=== PATIENT | female | born 1970 | race Caucasian/White ===

== ENCOUNTER 2016-10-29 09:41 | Inpatient (IN) | payer OTHER ==
[2016-10-29 12:46] VITALS: BMI 31.7
--- NOTE | 2016-10-29 15:04 | HP ---
Admission [facility] Chief Complaint: I am here to go to rehab. Allergies/Adverse Reactions: Allergies Allergy/AdvReac Type Severity Reaction Status Date / Time No Known Allergies Allergy Verified 10/29/16 14:47 History of Present Illness: pt is a 46yr old female with a history cocaine dependence seeking rehab for tx. pt is also on a mmtp program last dose today with 140mg pending verification. Exam Limitations: No Limitations - Ebola screening Have you traveled outside of the country in the last 21 days: No Have you had contact with anyone from an Ebola affected area: No Have you been sick,other than usual withdrawal symptoms: No Do you have a fever: No - Review of Systems Constitutional: Changes in sleep EENT: reports: Blurred Vision (wears eye glasses) Respiratory: reports: No Symptoms reported Cardiac: reports: No Symptoms Reported GI: reports: Constipated, Poor Fluid Intake : reports: No Symptoms Reported, Other (fishy odor vaginal discharge.) Musculoskeletal: reports: Back Pain Integumentary: reports: No Symptoms Reported, Rash (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) Neuro: reports: Headache (migraines) Endocrine: reports: No Symptoms Reported Hematology: reports: No Symptoms Reported Psychiatric: reports: Judgement Intact, Orientated x3, Agitated, Anxious Other Systems: Reviewed and Negative Patient History - Patient Medical History Hx Anemia: No Hx Asthma: No Hx Chronic Obstructive Pulmonary Disease (COPD): No Hx Cancer: No Hx Cardiac Disorders: No Hx Congestive Heart Failure: No Hx Hypertension: Yes (ON MEDS) Hx Hypercholesterolemia: No Hx Pacemaker: No HX Cerebrovascular Accident: No Hx Seizures: Yes (2002- DRUG RELATED) Hx Dementia: No Hx Diabetes: No Hx Gastrointestinal Disorders: No Hx Liver Disease: No Hx Genitourinary Disorders: No Hx Sexually Transmitted Disorders: No Hx Renal Disease (ESRD): No Hx Thyroid Disease: No Hx Human Immunodeficiency Virus (HIV): No (negative) Hx Hepatitis C: Yes (interferon done 5yrs ago) Hx Depression: Yes Hx Suicide Attempt: No (denies) Hx Bipolar Disorder: No Hx Schizophrenia: No Other Medical History: anxiety/ptsd - Patient Surgical History Past Surgical History: No Hx Neurologic Surgery: No Hx Cataract Extraction: No Hx Cardiac Surgery: No Hx Lung Surgery: No Hx Breast Surgery: No Hx Breast Biopsy: No Hx Abdominal Surgery: No Hx Appendectomy: No Hx Cholecystectomy: No Hx Genitourinary Surgery: No Hx Section: No Hx Orthopedic Surgery: No Anesthesia Reaction: No - PPD History Previous Implant?: Yes Documented Results: Negative w/o proof PPD to be Administered?: Yes - Reproductive History Patient is a Female of Child Bearing Age (11 -55 yrs old): Yes Last Menstrual Period: 09/23/16 Patient : No - Smoking Cessation Smoking history: Current every day smoker Have you smoked in the past 12 months: Yes Aproximately how many cigarettes per day: 5 Cigars Per Day: 0 Hx Chewing Tobacco Use: No Initiated information on smoking cessation: Yes 'Breaking Loose' booklet given: 10/29/16 - Substance & Tx. History Hx Alcohol Use: No Hx Substance Use: Yes Substance Use Type: Cocaine Hx Substance Use Treatment: Yes - Substances Abused Cocaine Route: Injection Frequency: 3-6 times per week Amount used: $60 Age of first use: 29 Date of Last Use: 10/27/16 Family Disease History - Family Disease History Family Disease History: [place]: Grandparent Admission Physical Exam S - Vital Signs Vital Signs: Vital Signs - 24 hr 10/29/16 12:30 Temperature 96.6 F L Pulse Rate 63 Respiratory 20 Rate Blood Pressure 144/95 - Physical General Appearance: Yes: Appropriately Dressed, Moderate Distress, Tremorous, Irritable, Sweating, Anxious HEENTM: Yes: Within Normal Limits Respiratory: Yes: Lungs Clear, Normal Breath Sounds, No Respiratory Distress Neck: Yes: Within Normal Limits Breast: Yes: Within Normal Limits Cardiology: Yes: Regular Rhythm, Regular Rate, S1, S2 Abdominal: Yes: Normal Bowel Sounds, Non Tender, Soft Genitourinary: Yes: Within Normal Limits Back: Yes: Normal Inspection Musculoskeletal: Yes: Back pain Extremities: Yes: Normal Capillary Refill Neurological: Yes: Fully Oriented, Alert, Normal Response Integumentary: Yes: Normal Color, Track Lopez Lymphatic: Yes: Within Normal Limits - Diagnostic (1) Back pain Current Visit: Yes Status: Chronic Qualifiers: Back pain location: back pain in unspecified location Chronicity: chronic Back pain laterality: unspecified Qualified Code(s): M54.9 - Dorsalgia, unspecified; G89.29 - Other chronic pain (2) Cocaine dependence Current Visit: Yes Status: Chronic Qualifiers: Substance use status: uncomplicated Qualified Code(s): F14.20 - Cocaine dependence, uncomplicated (3) Methadone maintenance therapy patient Current Visit: Yes Status: Chronic Comment: last dose of 140mg given today; pending verification (4) Nicotine dependence Current Visit: Yes Status: Chronic Qualifiers: Nicotine product type: cigarettes Substance use status: uncomplicated Qualified Code(s): F17.210 - Nicotine dependence, cigarettes, uncomplicated (5) Migraine Current Visit: Yes Status: Chronic Qualifiers: Migraine type: unspecified Status migrainosus presence: without status migrainosus Cleared for Admission [facility] - Detox or Rehab [facility] Level of Care: Medically Managed Claeared for Rehab Admission: Yes [facility] Breath Alcohol Content Breath Alcohol Content: 0 Urine Pregancy Test - Result Urine Test Results: Negative- NO Line Present Urine Drug Screen - Results Drug Screen Negative: No Urine Drug Screen Results: BZO-Benzodiazepines, MTD-Methadone, TCA-Tricyclic Antidepress
[2016-10-29] MEDS ORDERED: LOPERAMIDE HCL 2 MG CAPSULE PO PRN (15:24)
[2016-10-29] MEDS ORDERED: P-EPHED 60MG/TRIPROLIDI 2.5MG TABLET PO PRN (15:24)
[2016-10-29] MEDS ORDERED: hydrOXYzine PAMOATE 50 MG CAPSULE (FP) PO PRN (15:24)
[2016-10-29] MEDS ORDERED: guaiFENesin/D-METHORPHAN HB 10 ML UNIT-DOSE CUPS PO PRN (15:24)
[2016-10-29] MEDS ORDERED: MAGNESIUM CITRATE 300 ML BOTTLE PO PRN (15:24)
[2016-10-29] MEDS ORDERED: IBUPROFEN 400 MG TABLET (FP) PO PRN (15:24)
[2016-10-29] MEDS ORDERED: ACETAMINOPHEN 325 MG TABLET (FP) PO PRN (15:24)
[2016-10-29] MEDS ORDERED: MAG HYDROX/AL HYDROX/SIMETH 30 ML UNIT-DOSE CUP PO PRN (15:24)
[2016-10-29] MEDS ORDERED: NICOTINE POLACRILEX 4 MG GUM BUC PRN (15:24)
[2016-10-29] MEDS ORDERED: MENTHOL/PHENOL 1 EACH UD MM PRN (15:24)
--- NOTE | 2016-10-29 16:53 | HP ---
Psychiatrist Admission - Data Date of interview: 10/29/16 Admission source: [facility] Identifying data: This is the second admission to [address] [place] [address] for this 46 years old female mother of 2 (19 yo and 6 yo).6 years old son resides with his father.Patient resides in supportive housing in [facility],supported by [employer]. Medical History: Significant for HTN,Migraine headache. Psychiatric History: First contact with psychiatrist was at 27 years old when she addressed her depression,anxiety,sleeping difficulties,drug use.Patient was dx with PTSD,Substance induced mood disorder.She was placed on Celexa,Ambien, Klonopin,Abilify.She sees psychiatrist at [facility] in the [place].Current meds:Paxil 30 mg po daily,Remeron 15 mg po hs,Neurontin 300 mg po tid. Physical/Sexual Abuse/Trauma History: denies Vital Signs: Vital Signs - 24 hr 10/29/16 10/29/16 12:30 16:21 Temperature 96.6 F L 98 F Pulse Rate 63 56 L Respiratory 20 20 Rate Blood Pressure 144/95 155/101 Allergies/Adverse Reactions: Allergies Allergy/AdvReac Type Severity Reaction Status Date / Time No Known Allergies Allergy Verified 10/29/16 14:47 Date of last physical exam: 10/29/16 Concur with the findings of this exam: Yes - Substance Abuse/Tx History Hx Alcohol Use: No Hx Substance Use: Yes (heroin since 19 yo 1 bag daily,MMTP 120 mg,cocaine since 29 yo,benzo 4 pill) Substance Use Type: Cocaine, Heroin Hx Substance Use Treatment: Yes (multiple treatment episodes) - Admission Criteria Previous failed treatment: Yes Poor recovery environment: Yes Comorbidities: Yes Lacks judgement: Yes Mental Status Exam - Mental Status Exam Alert and Oriented to: Time, Place, Person Cognitive Function: Grossly Intact Patient Appearance: Well Groomed Mood: Anxious Affect: Mood Congruent, Labile Patient Behavior: Cooperative Speech Pattern: Clear Voice Loudness: Normal Thought Process: Goal Oriented Thought Disorder: Not Present Hallucinations: Denies Suicidal Ideation: Denies Homicidal Ideation: Denies Insight/Judgement: Fair Sleep: Fair Appetite: Good Muscle strength/Tone: Normal Gait/Station: Normal Psychiatric Findings - Problem List ([place] 1, 2,3) (1) Cocaine dependence Current Visit: Yes Status: Chronic Qualifiers: Substance use status: uncomplicated Qualified Code(s): F14.20 - Cocaine dependence, uncomplicated (2) Methadone maintenance therapy patient Current Visit: Yes Status: Chronic Comment: last dose of 140mg given today; pending verification (3) Migraine Current Visit: Yes Status: Chronic Qualifiers: Migraine type: unspecified Status migrainosus presence: without status migrainosus (4) Nicotine dependence Current Visit: Yes Status: Chronic Qualifiers: Nicotine product type: cigarettes Substance use status: uncomplicated Qualified Code(s): F17.210 - Nicotine dependence, cigarettes, uncomplicated - Initial Treatment Plan Initial Treatment Plan: Continue Neurontin 300 mg po tid,Remeron 15 mg po hs, Wellbutrin 150 mg po am,Paxil 30 mg po daily . Will monitor progress.
[2016-10-29] MEDS ORDERED: cloNIDine HCL 0.1 MG TABLET PO ONE (17:00)
[2016-10-29] MEDS ORDERED: TUBERCULIN PPD 5 TU/0.1ML VIAL ID ONE (17:35)
[2016-10-29] MEDS: FLUOCINONIDE 0.05% CREAM (60 GM TUBE) TP SCH ×2 (18:08→22:15)
[2016-10-29 20:19] LABS: URINE APPEARANCE CLEAR; URINE BILIRUBIN NEGATIVE (NEGATIVE); URINE BLOOD NEGATIVE (NEGATIVE); URINE COLOR LTYELLOW; URINE GLUCOSE (UA) NEGATIVE (NEGATIVE); URINE KETONE NEGATIVE (NEGATIVE); URINE LEUK ESTERASE NEGATIVE (NEGATIVE); URINE NITRITE NEGATIVE (NEGATIVE); URINE UROBILINOGEN NEGATIVE E.U./dl (0.2-1.0)
[2016-10-29 20:24] LABS: URINE PROTEIN 2+ (NEGATIVE)
[2016-10-29 20:43] LABS: URINE BACTERIA RARE /hpf (NONE SEEN); URINE MUCUS RARE; URINE RBC <1 /hpf (0-3); URINE WBC <1 /hpf (3-5)
[2016-10-29] MEDS ORDERED: GABAPENTIN 100 MG CAPSULE (FP) PO SCH (22:00)
[2016-10-29] MEDS: MIRTAZAPINE 15 MG TABLET (FP) PO SCH (22:15)
[2016-10-29] MEDS: GABAPENTIN 300 MG CAPSULE (FP) PO SCH (22:15)
[2016-10-29] MEDS: diphenhydrAMINE HCL 50 MG CAPSULE PO PRN (22:15)
[2016-10-29] MEDS: THIAMINE HCL 100 MG TABLET (FP) PO SCH (22:15)
[2016-10-30] MEDS: GABAPENTIN 300 MG CAPSULE (FP) PO SCH ×3 (07:05→21:17)
[2016-10-30] MEDS ORDERED: METHADONE HCL 40 MG DISPERSABLE TABLET ONE (07:58)
[2016-10-30] MEDS ORDERED: METHADONE HCL 10 MG TABLET ONE (07:58)
[2016-10-30] MEDS: METHADONE 120 MG, METHADONE 20 MG PO SCH (07:59)
[2016-10-30] MEDS ORDERED: METHADONE HCL 10 MG TABLET PO SCH (08:00)
[2016-10-30] MEDS ORDERED: PT OWN MED DRAWER 7, Y5N ONE (08:55)
[2016-10-30] MEDS: PRENATAL VITAMINS W/ FOLIC ACID TABLET (FP) PO SCH (09:33)
[2016-10-30] MEDS: PARoxetine HCL 10 MG TABLET (FP) PO SCH (09:33)
[2016-10-30] MEDS: amLODIPine BESYLATE 2.5 MG TABLET (FP) PO SCH (09:33)
[2016-10-30] MEDS: FLUOCINONIDE 0.05% CREAM (60 GM TUBE) TP SCH ×4 (09:34→21:18)
[2016-10-30] MEDS: NICOTINE 21 MG/24 HOURS TOPICAL PATCH TD SCH (09:34)
[2016-10-30] MEDS: MAGNESIUM OXIDE 400 MG TABLET (FP) PO SCH (09:34)
[2016-10-30 10:47] LABS: MCH 30.7 pg (25.7-33.7); MCHC 33.7 g/dl (32.0-36.0); MEAN PLT VOLUME 8.2 fl (7.5-11.1); PLATELET COUNT 175 K/MM3 (134-434); RDW 13.7 % (11.6-15.6); WHITE BLOOD COUNT 5.3 K/mm3 (4.0-10.0)
[2016-10-30 11:19] LABS: ALBUMIN 3.7 g/dl (3.4-5.0); BILIRUBIN,TOTAL 0.3 mg/dL (0.2-1.0); COCKROFT - GAULT 61.6845; CREATININE 1.4 mg/dL (0.55-1.02)
[2016-10-30 15:07] LABS: HIV 1 & 2 AB NEGATIVE; HIV 1 AGp24 NEGATIVE
[2016-10-30] MEDS: MIRTAZAPINE 15 MG TABLET (FP) PO SCH (21:17)
[2016-10-30] MEDS: diphenhydrAMINE HCL 50 MG CAPSULE PO PRN (21:18)
[2016-10-30] MEDS: THIAMINE HCL 100 MG TABLET (FP) PO SCH (21:18)
[2016-10-31] MEDS ORDERED: METHADONE HCL 40 MG DISPERSABLE TABLET ONE (05:49)
[2016-10-31] MEDS ORDERED: METHADONE HCL 10 MG TABLET ONE (05:49)
[2016-10-31] MEDS: METHADONE 120 MG, METHADONE 20 MG PO SCH (06:47)
[2016-10-31] MEDS: GABAPENTIN 300 MG CAPSULE (FP) PO SCH ×3 (06:47→21:23)
[2016-10-31] MEDS ORDERED: PT OWN MED DRAWER 7, Y5N ONE (08:41)
[2016-10-31] MEDS: NICOTINE 21 MG/24 HOURS TOPICAL PATCH TD SCH (09:56)
[2016-10-31] MEDS: PARoxetine HCL 10 MG TABLET (FP) PO SCH (09:57)
[2016-10-31] MEDS: MAGNESIUM OXIDE 400 MG TABLET (FP) PO SCH (09:57)
[2016-10-31] MEDS: FLUOCINONIDE 0.05% CREAM (60 GM TUBE) TP SCH ×4 (09:57→21:23)
[2016-10-31] MEDS: PRENATAL VITAMINS W/ FOLIC ACID TABLET (FP) PO SCH (09:57)
[2016-10-31] MEDS: amLODIPine BESYLATE 2.5 MG TABLET (FP) PO SCH (09:57)
[2016-10-31] MEDS: MIRTAZAPINE 15 MG TABLET (FP) PO SCH (21:23)
[2016-10-31] MEDS: diphenhydrAMINE HCL 50 MG CAPSULE PO PRN (21:23)
[2016-10-31] MEDS: THIAMINE HCL 100 MG TABLET (FP) PO SCH (21:23)
[2016-11-01] MEDS ORDERED: METHADONE HCL 10 MG TABLET ONE (05:46)
[2016-11-01] MEDS ORDERED: METHADONE HCL 40 MG DISPERSABLE TABLET ONE (05:47)
[2016-11-01] MEDS: METHADONE 120 MG, METHADONE 20 MG PO SCH (06:24)
[2016-11-01] MEDS: GABAPENTIN 300 MG CAPSULE (FP) PO SCH ×3 (06:25→21:31)
[2016-11-01] MEDS: cloNIDine HCL 0.1 MG TABLET PO SCH ×3 (07:13→21:31)
[2016-11-01] MEDS: amLODIPine BESYLATE 2.5 MG TABLET (FP) PO SCH (07:14)
[2016-11-01] MEDS ORDERED: cloNIDine HCL 0.1 MG TABLET PO SCH (10:00)
[2016-11-01] MEDS: PRENATAL VITAMINS W/ FOLIC ACID TABLET (FP) PO SCH (10:39)
[2016-11-01] MEDS: MAGNESIUM OXIDE 400 MG TABLET (FP) PO SCH (10:39)
[2016-11-01] MEDS: FLUOCINONIDE 0.05% CREAM (60 GM TUBE) TP SCH ×4 (10:39→21:32)
[2016-11-01] MEDS: HYDROCHLOROTHIAZIDE 25 MG TABLET (FP) PO SCH (10:39)
[2016-11-01] MEDS: NICOTINE 21 MG/24 HOURS TOPICAL PATCH TD SCH (10:39)
[2016-11-01] MEDS: PARoxetine HCL 10 MG TABLET (FP) PO SCH (10:39)
--- NOTE | 2016-11-01 11:34 | EKG ---
Test Reason : Blood Pressure : / mmHG Vent. Rate : 055 BPM Atrial Rate : 055 BPM P-R Int : 144 ms QRS Dur : 100 ms QT Int : 494 ms P-R-T Axes : 032 064 066 degrees QTc Int : 472 ms SINUS BRADYCARDIA OTHERWISE NORMAL ECG NO PREVIOUS ECGS AVAILABLE Confirmed by CANDACE CASTILLO MD ([id number]) on 11/01/2016 11:33:33 AM Referred By: Confirmed By:CANDACE CASTILLO MD
[2016-11-01] MEDS: diphenhydrAMINE HCL 50 MG CAPSULE PO PRN (21:31)
[2016-11-01] MEDS: THIAMINE HCL 100 MG TABLET (FP) PO SCH (21:31)
[2016-11-01] MEDS: MIRTAZAPINE 15 MG TABLET (FP) PO SCH (21:31)
[2016-11-02] MEDS ORDERED: METHADONE HCL 10 MG TABLET ONE (03:17)
[2016-11-02] MEDS ORDERED: METHADONE HCL 40 MG DISPERSABLE TABLET ONE (03:18)
[2016-11-02] MEDS: amLODIPine BESYLATE 2.5 MG TABLET (FP) PO SCH (06:35)
[2016-11-02] MEDS: GABAPENTIN 300 MG CAPSULE (FP) PO SCH ×3 (06:36→21:20)
[2016-11-02] MEDS: METHADONE 120 MG, METHADONE 20 MG PO SCH (06:37)
[2016-11-02] MEDS ORDERED: PT OWN MED DRAWER 7, Y5N ONE (08:46)
[2016-11-02] MEDS: cloNIDine HCL 0.1 MG TABLET PO SCH ×2 (10:28→21:20)
[2016-11-02] MEDS: HYDROCHLOROTHIAZIDE 25 MG TABLET (FP) PO SCH (10:28)
[2016-11-02] MEDS: NICOTINE 21 MG/24 HOURS TOPICAL PATCH TD SCH (10:29)
[2016-11-02] MEDS: FLUOCINONIDE 0.05% CREAM (60 GM TUBE) TP SCH ×4 (10:29→21:20)
[2016-11-02] MEDS: MAGNESIUM OXIDE 400 MG TABLET (FP) PO SCH (10:29)
[2016-11-02] MEDS: PARoxetine HCL 10 MG TABLET (FP) PO SCH (10:30)
[2016-11-02] MEDS: PRENATAL VITAMINS W/ FOLIC ACID TABLET (FP) PO SCH (10:30)
[2016-11-02] MEDS: MIRTAZAPINE 15 MG TABLET (FP) PO SCH (21:20)
[2016-11-02] MEDS: THIAMINE HCL 100 MG TABLET (FP) PO SCH (21:20)
[2016-11-02] MEDS: amLODIPine BESYLATE 5 MG TABLET (FP) PO SCH (21:21)
[2016-11-02] MEDS: diphenhydrAMINE HCL 50 MG CAPSULE PO PRN (21:22)
[2016-11-03] MEDS ORDERED: METHADONE HCL 10 MG TABLET ONE (03:17)
[2016-11-03] MEDS ORDERED: METHADONE HCL 40 MG DISPERSABLE TABLET ONE (03:17)
[2016-11-03] MEDS: GABAPENTIN 300 MG CAPSULE (FP) PO SCH ×3 (06:15→21:22)
[2016-11-03] MEDS: METHADONE 120 MG, METHADONE 20 MG PO SCH (06:16)
[2016-11-03] MEDS ORDERED: PT OWN MED DRAWER 7, Y5N ONE (08:23)
[2016-11-03] MEDS: FLUOCINONIDE 0.05% CREAM (60 GM TUBE) TP SCH ×4 (10:11→21:23)
[2016-11-03] MEDS: PARoxetine HCL 10 MG TABLET (FP) PO SCH (10:12)
[2016-11-03] MEDS: NICOTINE 21 MG/24 HOURS TOPICAL PATCH TD SCH (10:12)
[2016-11-03] MEDS: cloNIDine HCL 0.1 MG TABLET PO SCH ×2 (10:13→21:22)
[2016-11-03] MEDS: amLODIPine BESYLATE 5 MG TABLET (FP) PO SCH ×2 (10:13→21:22)
[2016-11-03] MEDS: HYDROCHLOROTHIAZIDE 25 MG TABLET (FP) PO SCH (10:13)
[2016-11-03] MEDS: MAGNESIUM OXIDE 400 MG TABLET (FP) PO SCH (10:13)
[2016-11-03] MEDS: PRENATAL VITAMINS W/ FOLIC ACID TABLET (FP) PO SCH (10:13)
[2016-11-03] MEDS: diphenhydrAMINE HCL 50 MG CAPSULE PO PRN (21:22)
[2016-11-03] MEDS: MIRTAZAPINE 15 MG TABLET (FP) PO SCH (21:22)
[2016-11-03] MEDS: THIAMINE HCL 100 MG TABLET (FP) PO SCH (21:22)
[2016-11-04] MEDS ORDERED: METHADONE HCL 10 MG TABLET ONE (03:16)
[2016-11-04] MEDS ORDERED: METHADONE HCL 40 MG DISPERSABLE TABLET ONE (03:16)
[2016-11-04] MEDS: METHADONE 120 MG, METHADONE 20 MG PO SCH (06:06)
[2016-11-04] MEDS: GABAPENTIN 300 MG CAPSULE (FP) PO SCH ×3 (06:07→21:21)
[2016-11-04] MEDS: cloNIDine HCL 0.1 MG TABLET PO SCH ×2 (10:07→21:21)
[2016-11-04] MEDS: FLUOCINONIDE 0.05% CREAM (60 GM TUBE) TP SCH ×2 (10:08→13:03)
[2016-11-04] MEDS: NICOTINE 21 MG/24 HOURS TOPICAL PATCH TD SCH (10:08)
[2016-11-04] MEDS: MAGNESIUM OXIDE 400 MG TABLET (FP) PO SCH (10:08)
[2016-11-04] MEDS: HYDROCHLOROTHIAZIDE 25 MG TABLET (FP) PO SCH (10:08)
[2016-11-04] MEDS: PARoxetine HCL 10 MG TABLET (FP) PO SCH (10:09)
[2016-11-04] MEDS: amLODIPine BESYLATE 5 MG TABLET (FP) PO SCH ×2 (10:09→21:21)
[2016-11-04] MEDS: PRENATAL VITAMINS W/ FOLIC ACID TABLET (FP) PO SCH (10:10)
[2016-11-04] MEDS ORDERED: PT OWN MED DRAWER 7, Y5N ONE ×2 (12:41→14:50)
[2016-11-04] MEDS: HYDROCORTISONE 1% TOPICAL CREAM 30 GM TUBE TP SCH ×3 (14:50→21:23)
[2016-11-04] MEDS: THIAMINE HCL 100 MG TABLET (FP) PO SCH (21:21)
[2016-11-04] MEDS: MIRTAZAPINE 15 MG TABLET (FP) PO SCH (21:21)
[2016-11-04] MEDS: diphenhydrAMINE HCL 50 MG CAPSULE PO PRN (21:22)
[2016-11-05] MEDS ORDERED: METHADONE HCL 10 MG TABLET ONE (06:05)
[2016-11-05] MEDS ORDERED: METHADONE HCL 40 MG DISPERSABLE TABLET ONE (06:05)
[2016-11-05] MEDS: GABAPENTIN 300 MG CAPSULE (FP) PO SCH ×3 (06:05→21:20)
[2016-11-05] MEDS: METHADONE 120 MG, METHADONE 20 MG PO SCH (06:06)
[2016-11-05] MEDS: NICOTINE 21 MG/24 HOURS TOPICAL PATCH TD SCH (10:10)
[2016-11-05] MEDS: cloNIDine HCL 0.1 MG TABLET PO SCH ×2 (10:11→21:20)
[2016-11-05] MEDS: PARoxetine HCL 10 MG TABLET (FP) PO SCH (10:11)
[2016-11-05] MEDS: HYDROCHLOROTHIAZIDE 25 MG TABLET (FP) PO SCH (10:11)
[2016-11-05] MEDS: MAGNESIUM OXIDE 400 MG TABLET (FP) PO SCH (10:11)
[2016-11-05] MEDS: amLODIPine BESYLATE 5 MG TABLET (FP) PO SCH ×2 (10:11→21:20)
[2016-11-05] MEDS: PRENATAL VITAMINS W/ FOLIC ACID TABLET (FP) PO SCH (10:11)
[2016-11-05] MEDS: HYDROCORTISONE 1% TOPICAL CREAM 30 GM TUBE TP SCH ×4 (11:04→21:21)
[2016-11-05] MEDS: MIRTAZAPINE 15 MG TABLET (FP) PO SCH (21:20)
[2016-11-05] MEDS: THIAMINE HCL 100 MG TABLET (FP) PO SCH (21:20)
[2016-11-05] MEDS: MAGNESIUM HYDROX 2400MG/30ML ORAL SUSPENSION 30 ML CUP PO PRN (21:22)
[2016-11-05] MEDS: diphenhydrAMINE HCL 50 MG CAPSULE PO PRN (21:23)
[2016-11-06] MEDS ORDERED: METHADONE HCL 40 MG DISPERSABLE TABLET ONE (06:06)
[2016-11-06] MEDS ORDERED: METHADONE HCL 10 MG TABLET ONE (06:06)
[2016-11-06] MEDS: GABAPENTIN 300 MG CAPSULE (FP) PO SCH ×3 (06:19→21:34)
[2016-11-06] MEDS: METHADONE 120 MG, METHADONE 20 MG PO SCH (06:19)
[2016-11-06] MEDS: NICOTINE 21 MG/24 HOURS TOPICAL PATCH TD SCH (10:11)
[2016-11-06] MEDS: amLODIPine BESYLATE 5 MG TABLET (FP) PO SCH ×2 (10:12→21:34)
[2016-11-06] MEDS: MAGNESIUM OXIDE 400 MG TABLET (FP) PO SCH (10:12)
[2016-11-06] MEDS: cloNIDine HCL 0.1 MG TABLET PO SCH ×2 (10:12→21:34)
[2016-11-06] MEDS: HYDROCORTISONE 1% TOPICAL CREAM 30 GM TUBE TP SCH ×4 (10:12→21:35)
[2016-11-06] MEDS: PARoxetine HCL 10 MG TABLET (FP) PO SCH (10:13)
[2016-11-06] MEDS: PRENATAL VITAMINS W/ FOLIC ACID TABLET (FP) PO SCH (10:13)
[2016-11-06] MEDS: HYDROCHLOROTHIAZIDE 25 MG TABLET (FP) PO SCH (10:13)
[2016-11-06] MEDS: MAGNESIUM HYDROX 2400MG/30ML ORAL SUSPENSION 30 ML CUP PO PRN (10:14)
[2016-11-06] MEDS: MIRTAZAPINE 15 MG TABLET (FP) PO SCH (21:34)
[2016-11-06] MEDS: diphenhydrAMINE HCL 50 MG CAPSULE PO PRN (21:34)
[2016-11-06] MEDS: THIAMINE HCL 100 MG TABLET (FP) PO SCH (21:34)
[2016-11-07] MEDS ORDERED: METHADONE HCL 40 MG DISPERSABLE TABLET ONE (03:22)
[2016-11-07] MEDS ORDERED: METHADONE HCL 10 MG TABLET ONE (03:22)
[2016-11-07] MEDS: METHADONE 120 MG, METHADONE 20 MG PO SCH (06:19)
[2016-11-07] MEDS: GABAPENTIN 300 MG CAPSULE (FP) PO SCH ×3 (06:19→21:18)
[2016-11-07] MEDS: HYDROCHLOROTHIAZIDE 25 MG TABLET (FP) PO SCH (09:27)
[2016-11-07] MEDS: cloNIDine HCL 0.1 MG TABLET PO SCH ×2 (09:27→21:17)
[2016-11-07] MEDS: amLODIPine BESYLATE 5 MG TABLET (FP) PO SCH ×2 (09:27→21:17)
[2016-11-07] MEDS: NICOTINE 21 MG/24 HOURS TOPICAL PATCH TD SCH (09:53)
[2016-11-07] MEDS: PRENATAL VITAMINS W/ FOLIC ACID TABLET (FP) PO SCH (09:54)
[2016-11-07] MEDS: HYDROCORTISONE 1% TOPICAL CREAM 30 GM TUBE TP SCH ×4 (09:54→21:19)
[2016-11-07] MEDS: MAGNESIUM OXIDE 400 MG TABLET (FP) PO SCH (09:54)
[2016-11-07] MEDS: PARoxetine HCL 10 MG TABLET (FP) PO SCH (09:54)
[2016-11-07] MEDS: diphenhydrAMINE HCL 50 MG CAPSULE PO PRN (21:17)
[2016-11-07] MEDS: MIRTAZAPINE 15 MG TABLET (FP) PO SCH (21:18)
[2016-11-07] MEDS: THIAMINE HCL 100 MG TABLET (FP) PO SCH (21:18)
[2016-11-08] MEDS ORDERED: METHADONE HCL 40 MG DISPERSABLE TABLET ONE (03:22)
[2016-11-08] MEDS ORDERED: METHADONE HCL 10 MG TABLET ONE (03:22)
[2016-11-08] MEDS: METHADONE 120 MG, METHADONE 20 MG PO SCH (06:32)
[2016-11-08] MEDS: GABAPENTIN 300 MG CAPSULE (FP) PO SCH ×3 (06:32→21:10)
[2016-11-08] MEDS: MAGNESIUM OXIDE 400 MG TABLET (FP) PO SCH (10:38)
[2016-11-08] MEDS: cloNIDine HCL 0.1 MG TABLET PO SCH ×2 (10:38→21:10)
[2016-11-08] MEDS: HYDROCHLOROTHIAZIDE 25 MG TABLET (FP) PO SCH (10:38)
[2016-11-08] MEDS: amLODIPine BESYLATE 5 MG TABLET (FP) PO SCH ×2 (10:38→21:10)
[2016-11-08] MEDS: PRENATAL VITAMINS W/ FOLIC ACID TABLET (FP) PO SCH (10:39)
[2016-11-08] MEDS: NICOTINE 21 MG/24 HOURS TOPICAL PATCH TD SCH (10:42)
[2016-11-08] MEDS: HYDROCORTISONE 1% TOPICAL CREAM 30 GM TUBE TP SCH ×4 (10:43→21:11)
[2016-11-08] MEDS: PARoxetine HCL 10 MG TABLET (FP) PO SCH (11:00)
[2016-11-08] MEDS ORDERED: PT OWN MED DRAWER 7, Y5N ONE (12:12)
[2016-11-08] MEDS: THIAMINE HCL 100 MG TABLET (FP) PO SCH (21:09)
[2016-11-08] MEDS: diphenhydrAMINE HCL 50 MG CAPSULE PO PRN (21:10)
[2016-11-08] MEDS: MIRTAZAPINE 15 MG TABLET (FP) PO SCH (21:10)
[2016-11-09] MEDS ORDERED: METHADONE HCL 10 MG TABLET ONE (05:52)
[2016-11-09] MEDS ORDERED: METHADONE HCL 40 MG DISPERSABLE TABLET ONE (05:53)
[2016-11-09] MEDS: METHADONE 120 MG, METHADONE 20 MG PO SCH (06:18)
[2016-11-09] MEDS: GABAPENTIN 300 MG CAPSULE (FP) PO SCH ×3 (06:18→21:21)
[2016-11-09] MEDS: amLODIPine BESYLATE 5 MG TABLET (FP) PO SCH ×2 (10:15→21:21)
[2016-11-09] MEDS: HYDROCHLOROTHIAZIDE 25 MG TABLET (FP) PO SCH (10:15)
[2016-11-09] MEDS: cloNIDine HCL 0.1 MG TABLET PO SCH ×2 (10:15→21:21)
[2016-11-09] MEDS: MAGNESIUM OXIDE 400 MG TABLET (FP) PO SCH (10:15)
[2016-11-09] MEDS: PRENATAL VITAMINS W/ FOLIC ACID TABLET (FP) PO SCH (10:16)
[2016-11-09] MEDS: NICOTINE 21 MG/24 HOURS TOPICAL PATCH TD SCH (10:16)
[2016-11-09] MEDS: PARoxetine HCL 10 MG TABLET (FP) PO SCH (10:16)
[2016-11-09] MEDS: HYDROCORTISONE 1% TOPICAL CREAM 30 GM TUBE TP SCH ×4 (10:18→21:22)
[2016-11-09] MEDS: MIRTAZAPINE 15 MG TABLET (FP) PO SCH (21:21)
[2016-11-09] MEDS: THIAMINE HCL 100 MG TABLET (FP) PO SCH (21:21)
[2016-11-09] MEDS: diphenhydrAMINE HCL 50 MG CAPSULE PO PRN (21:22)
[2016-11-10] MEDS ORDERED: METHADONE HCL 10 MG TABLET ONE (03:20)
[2016-11-10] MEDS ORDERED: METHADONE HCL 40 MG DISPERSABLE TABLET ONE (03:20)
[2016-11-10] MEDS: METHADONE 120 MG, METHADONE 20 MG PO SCH (06:23)
[2016-11-10] MEDS: GABAPENTIN 300 MG CAPSULE (FP) PO SCH ×3 (06:23→21:22)
[2016-11-10] MEDS: PARoxetine HCL 10 MG TABLET (FP) PO SCH (09:49)
[2016-11-10] MEDS: NICOTINE 21 MG/24 HOURS TOPICAL PATCH TD SCH (09:49)
[2016-11-10] MEDS: cloNIDine HCL 0.1 MG TABLET PO SCH ×2 (09:50→21:22)
[2016-11-10] MEDS: HYDROCHLOROTHIAZIDE 25 MG TABLET (FP) PO SCH (09:50)
[2016-11-10] MEDS: MAGNESIUM OXIDE 400 MG TABLET (FP) PO SCH (09:50)
[2016-11-10] MEDS: amLODIPine BESYLATE 5 MG TABLET (FP) PO SCH ×2 (09:50→21:22)
[2016-11-10] MEDS: PRENATAL VITAMINS W/ FOLIC ACID TABLET (FP) PO SCH (09:50)
[2016-11-10] MEDS: HYDROCORTISONE 1% TOPICAL CREAM 30 GM TUBE TP SCH ×4 (09:51→21:23)
[2016-11-10] MEDS: MIRTAZAPINE 15 MG TABLET (FP) PO SCH (21:22)
[2016-11-10] MEDS: THIAMINE HCL 100 MG TABLET (FP) PO SCH (21:22)
[2016-11-10] MEDS: diphenhydrAMINE HCL 50 MG CAPSULE PO PRN (21:23)
[2016-11-11] MEDS ORDERED: METHADONE HCL 10 MG TABLET ONE (03:16)
[2016-11-11] MEDS ORDERED: METHADONE HCL 40 MG DISPERSABLE TABLET ONE (03:16)
[2016-11-11] MEDS: METHADONE 120 MG, METHADONE 20 MG PO SCH (06:14)
[2016-11-11] MEDS: GABAPENTIN 300 MG CAPSULE (FP) PO SCH ×3 (06:14→21:16)
[2016-11-11] MEDS ORDERED: PT OWN MED DRAWER 7, Y5N ONE (08:19)
[2016-11-11] MEDS: cloNIDine HCL 0.1 MG TABLET PO SCH (10:01)
[2016-11-11] MEDS: HYDROCHLOROTHIAZIDE 25 MG TABLET (FP) PO SCH (10:01)
[2016-11-11] MEDS: amLODIPine BESYLATE 5 MG TABLET (FP) PO SCH ×2 (10:01→21:16)
[2016-11-11] MEDS: MAGNESIUM OXIDE 400 MG TABLET (FP) PO SCH (10:01)
[2016-11-11] MEDS: PRENATAL VITAMINS W/ FOLIC ACID TABLET (FP) PO SCH (10:02)
[2016-11-11] MEDS: NICOTINE 21 MG/24 HOURS TOPICAL PATCH TD SCH (10:02)
[2016-11-11] MEDS: PARoxetine HCL 10 MG TABLET (FP) PO SCH (10:02)
[2016-11-11] MEDS: HYDROCORTISONE 1% TOPICAL CREAM 30 GM TUBE TP SCH ×4 (10:03→21:17)
--- NOTE | 2016-11-11 14:54 | PN ---
[facility] Progress Note Note: BP is running low P : d/c clonidine
[2016-11-11] MEDS: THIAMINE HCL 100 MG TABLET (FP) PO SCH (21:16)
[2016-11-11] MEDS: MIRTAZAPINE 15 MG TABLET (FP) PO SCH (21:16)
[2016-11-11] MEDS: diphenhydrAMINE HCL 50 MG CAPSULE PO PRN (21:17)
[2016-11-12] MEDS ORDERED: METHADONE HCL 10 MG TABLET ONE (03:24)
[2016-11-12] MEDS ORDERED: METHADONE HCL 40 MG DISPERSABLE TABLET ONE (03:24)
[2016-11-12] MEDS: METHADONE 120 MG, METHADONE 20 MG PO SCH (06:13)
[2016-11-12] MEDS: GABAPENTIN 300 MG CAPSULE (FP) PO SCH ×3 (06:14→21:28)
[2016-11-12] MEDS: MAGNESIUM OXIDE 400 MG TABLET (FP) PO SCH (10:03)
[2016-11-12] MEDS: PARoxetine HCL 10 MG TABLET (FP) PO SCH (10:03)
[2016-11-12] MEDS: amLODIPine BESYLATE 5 MG TABLET (FP) PO SCH ×2 (10:03→21:28)
[2016-11-12] MEDS: HYDROCHLOROTHIAZIDE 25 MG TABLET (FP) PO SCH (10:03)
[2016-11-12] MEDS: PRENATAL VITAMINS W/ FOLIC ACID TABLET (FP) PO SCH (10:03)
[2016-11-12] MEDS: NICOTINE 21 MG/24 HOURS TOPICAL PATCH TD SCH (10:04)
[2016-11-12] MEDS: HYDROCORTISONE 1% TOPICAL CREAM 30 GM TUBE TP SCH ×4 (10:04→21:28)
[2016-11-12] MEDS ORDERED: PT OWN MED DRAWER 7, Y5N ONE (16:52)
[2016-11-12] MEDS: MIRTAZAPINE 15 MG TABLET (FP) PO SCH (21:28)
[2016-11-12] MEDS: THIAMINE HCL 100 MG TABLET (FP) PO SCH (21:28)
[2016-11-12] MEDS: diphenhydrAMINE HCL 50 MG CAPSULE PO PRN (21:29)
[2016-11-13] MEDS ORDERED: METHADONE HCL 40 MG DISPERSABLE TABLET ONE (05:44)
[2016-11-13] MEDS ORDERED: METHADONE HCL 10 MG TABLET ONE (05:44)
[2016-11-13] MEDS: METHADONE 120 MG, METHADONE 20 MG PO SCH (06:40)
[2016-11-13] MEDS: GABAPENTIN 300 MG CAPSULE (FP) PO SCH ×3 (06:40→21:23)
[2016-11-13] MEDS ORDERED: PT OWN MED DRAWER 7, Y5N ONE (08:55)
[2016-11-13] MEDS: NICOTINE 21 MG/24 HOURS TOPICAL PATCH TD SCH (10:15)
[2016-11-13] MEDS: MAGNESIUM OXIDE 400 MG TABLET (FP) PO SCH (10:16)
[2016-11-13] MEDS: HYDROCHLOROTHIAZIDE 25 MG TABLET (FP) PO SCH (10:16)
[2016-11-13] MEDS: PRENATAL VITAMINS W/ FOLIC ACID TABLET (FP) PO SCH (10:16)
[2016-11-13] MEDS: PARoxetine HCL 10 MG TABLET (FP) PO SCH (10:16)
[2016-11-13] MEDS: amLODIPine BESYLATE 5 MG TABLET (FP) PO SCH ×2 (10:16→21:23)
[2016-11-13] MEDS: HYDROCORTISONE 1% TOPICAL CREAM 30 GM TUBE TP SCH ×4 (10:17→21:24)
[2016-11-13] MEDS: THIAMINE HCL 100 MG TABLET (FP) PO SCH (21:23)
[2016-11-13] MEDS: MIRTAZAPINE 15 MG TABLET (FP) PO SCH (21:23)
[2016-11-13] MEDS: diphenhydrAMINE HCL 50 MG CAPSULE PO PRN (21:23)
[2016-11-14] MEDS ORDERED: METHADONE HCL 10 MG TABLET ONE (05:33)
[2016-11-14] MEDS ORDERED: METHADONE HCL 40 MG DISPERSABLE TABLET ONE (05:33)
[2016-11-14] MEDS: METHADONE 120 MG, METHADONE 20 MG PO SCH (06:24)
[2016-11-14] MEDS: GABAPENTIN 300 MG CAPSULE (FP) PO SCH ×3 (06:25→21:16)
[2016-11-14] MEDS ORDERED: PT OWN MED DRAWER 7, Y5N ONE ×2 (08:47→13:18)
[2016-11-14] MEDS: NICOTINE 21 MG/24 HOURS TOPICAL PATCH TD SCH (09:55)
[2016-11-14] MEDS: PRENATAL VITAMINS W/ FOLIC ACID TABLET (FP) PO SCH (09:56)
[2016-11-14] MEDS: MAGNESIUM OXIDE 400 MG TABLET (FP) PO SCH (09:56)
[2016-11-14] MEDS: PARoxetine HCL 10 MG TABLET (FP) PO SCH (09:56)
[2016-11-14] MEDS: HYDROCORTISONE 1% TOPICAL CREAM 30 GM TUBE TP SCH ×4 (09:57→21:17)
[2016-11-14] MEDS: amLODIPine BESYLATE 5 MG TABLET (FP) PO SCH ×2 (09:57→21:16)
[2016-11-14] MEDS: HYDROCHLOROTHIAZIDE 25 MG TABLET (FP) PO SCH (09:57)
[2016-11-14] MEDS: diphenhydrAMINE HCL 50 MG CAPSULE PO PRN (21:16)
[2016-11-14] MEDS: THIAMINE HCL 100 MG TABLET (FP) PO SCH (21:16)
[2016-11-14] MEDS: MIRTAZAPINE 15 MG TABLET (FP) PO SCH (21:16)
[2016-11-15] MEDS ORDERED: METHADONE HCL 10 MG TABLET ONE (05:40)
[2016-11-15] MEDS ORDERED: METHADONE HCL 40 MG DISPERSABLE TABLET ONE (05:41)
[2016-11-15] MEDS: GABAPENTIN 300 MG CAPSULE (FP) PO SCH ×3 (06:06→21:24)
[2016-11-15] MEDS: METHADONE 120 MG, METHADONE 20 MG PO SCH (06:06)
[2016-11-15] MEDS ORDERED: PT OWN MED DRAWER 7, Y5N ONE ×3 (08:39→13:33)
[2016-11-15] MEDS: MAGNESIUM OXIDE 400 MG TABLET (FP) PO SCH (10:26)
[2016-11-15] MEDS: NICOTINE 21 MG/24 HOURS TOPICAL PATCH TD SCH (10:26)
[2016-11-15] MEDS: amLODIPine BESYLATE 5 MG TABLET (FP) PO SCH ×2 (10:26→21:23)
[2016-11-15] MEDS: HYDROCHLOROTHIAZIDE 25 MG TABLET (FP) PO SCH (10:26)
[2016-11-15] MEDS: PRENATAL VITAMINS W/ FOLIC ACID TABLET (FP) PO SCH (10:26)
[2016-11-15] MEDS: HYDROCORTISONE 1% TOPICAL CREAM 30 GM TUBE TP SCH ×4 (10:27→21:23)
[2016-11-15] MEDS: PARoxetine HCL 10 MG TABLET (FP) PO SCH (11:20)
[2016-11-15] MEDS: MIRTAZAPINE 15 MG TABLET (FP) PO SCH (21:23)
[2016-11-15] MEDS: diphenhydrAMINE HCL 50 MG CAPSULE PO PRN (21:24)
[2016-11-15] MEDS: THIAMINE HCL 100 MG TABLET (FP) PO SCH (21:24)
[2016-11-16] MEDS ORDERED: METHADONE HCL 10 MG TABLET ONE (03:17)
[2016-11-16] MEDS ORDERED: METHADONE HCL 40 MG DISPERSABLE TABLET ONE (03:17)
[2016-11-16] MEDS: METHADONE 120 MG, METHADONE 20 MG PO SCH (06:06)
[2016-11-16] MEDS: GABAPENTIN 300 MG CAPSULE (FP) PO SCH ×3 (06:06→21:21)
[2016-11-16] MEDS: HYDROCHLOROTHIAZIDE 25 MG TABLET (FP) PO SCH (10:23)
[2016-11-16] MEDS: PRENATAL VITAMINS W/ FOLIC ACID TABLET (FP) PO SCH (10:23)
[2016-11-16] MEDS: amLODIPine BESYLATE 5 MG TABLET (FP) PO SCH ×2 (10:23→21:21)
[2016-11-16] MEDS: HYDROCORTISONE 1% TOPICAL CREAM 30 GM TUBE TP SCH ×4 (10:23→23:18)
[2016-11-16] MEDS: MAGNESIUM OXIDE 400 MG TABLET (FP) PO SCH (10:24)
[2016-11-16] MEDS: NICOTINE 21 MG/24 HOURS TOPICAL PATCH TD SCH (10:25)
[2016-11-16] MEDS: PARoxetine HCL 10 MG TABLET (FP) PO SCH (10:26)
[2016-11-16] MEDS ORDERED: PT OWN MED DRAWER 7, Y5N ONE (20:54)
[2016-11-16] MEDS: THIAMINE HCL 100 MG TABLET (FP) PO SCH (21:22)
[2016-11-16] MEDS: diphenhydrAMINE HCL 50 MG CAPSULE PO PRN (21:22)
[2016-11-16] MEDS: MIRTAZAPINE 15 MG TABLET (FP) PO SCH (21:22)
[2016-11-17] MEDS ORDERED: METHADONE HCL 10 MG TABLET ONE (03:09)
[2016-11-17] MEDS ORDERED: METHADONE HCL 40 MG DISPERSABLE TABLET ONE (03:10)
[2016-11-17] MEDS: METHADONE 120 MG, METHADONE 20 MG PO SCH (06:06)
[2016-11-17] MEDS: GABAPENTIN 300 MG CAPSULE (FP) PO SCH ×3 (06:07→21:28)
[2016-11-17] MEDS ORDERED: PT OWN MED DRAWER 7, Y5N ONE ×2 (08:41→12:32)
[2016-11-17] MEDS: NICOTINE 21 MG/24 HOURS TOPICAL PATCH TD SCH (10:19)
[2016-11-17] MEDS: HYDROCHLOROTHIAZIDE 25 MG TABLET (FP) PO SCH (10:20)
[2016-11-17] MEDS: MAGNESIUM OXIDE 400 MG TABLET (FP) PO SCH (10:20)
[2016-11-17] MEDS: PRENATAL VITAMINS W/ FOLIC ACID TABLET (FP) PO SCH (10:20)
[2016-11-17] MEDS: amLODIPine BESYLATE 5 MG TABLET (FP) PO SCH ×2 (10:20→21:28)
[2016-11-17] MEDS: PARoxetine HCL 10 MG TABLET (FP) PO SCH (10:20)
[2016-11-17] MEDS: HYDROCORTISONE 1% TOPICAL CREAM 30 GM TUBE TP SCH ×4 (10:21→21:29)
[2016-11-17] MEDS: MIRTAZAPINE 15 MG TABLET (FP) PO SCH (21:28)
[2016-11-17] MEDS: THIAMINE HCL 100 MG TABLET (FP) PO SCH (21:28)
[2016-11-17] MEDS: diphenhydrAMINE HCL 50 MG CAPSULE PO PRN (21:28)
[2016-11-18] MEDS ORDERED: METHADONE HCL 10 MG TABLET ONE (03:11)
[2016-11-18] MEDS ORDERED: METHADONE HCL 40 MG DISPERSABLE TABLET ONE (03:11)
[2016-11-18] MEDS: METHADONE 120 MG, METHADONE 20 MG PO SCH (06:08)
[2016-11-18] MEDS: GABAPENTIN 300 MG CAPSULE (FP) PO SCH ×3 (06:09→21:19)
[2016-11-18] MEDS ORDERED: PT OWN MED DRAWER 7, Y5N ONE (08:37)
[2016-11-18] MEDS: NICOTINE 21 MG/24 HOURS TOPICAL PATCH TD SCH (10:12)
[2016-11-18] MEDS: MAGNESIUM OXIDE 400 MG TABLET (FP) PO SCH (10:13)
[2016-11-18] MEDS: PARoxetine HCL 10 MG TABLET (FP) PO SCH (10:13)
[2016-11-18] MEDS: PRENATAL VITAMINS W/ FOLIC ACID TABLET (FP) PO SCH (10:13)
[2016-11-18] MEDS: HYDROCHLOROTHIAZIDE 25 MG TABLET (FP) PO SCH (10:13)
[2016-11-18] MEDS: amLODIPine BESYLATE 5 MG TABLET (FP) PO SCH ×2 (10:13→21:19)
[2016-11-18] MEDS: HYDROCORTISONE 1% TOPICAL CREAM 30 GM TUBE TP SCH ×4 (10:14→21:20)
[2016-11-18] MEDS: THIAMINE HCL 100 MG TABLET (FP) PO SCH (21:19)
[2016-11-18] MEDS: diphenhydrAMINE HCL 50 MG CAPSULE PO PRN (21:20)
[2016-11-18] MEDS: MIRTAZAPINE 15 MG TABLET (FP) PO SCH (21:20)
[2016-11-19] MEDS ORDERED: METHADONE HCL 10 MG TABLET ONE (05:43)
[2016-11-19] MEDS ORDERED: METHADONE HCL 40 MG DISPERSABLE TABLET ONE (05:44)
[2016-11-19] MEDS: GABAPENTIN 300 MG CAPSULE (FP) PO SCH (06:02)
[2016-11-19] MEDS: METHADONE 120 MG, METHADONE 20 MG PO SCH (06:02)
[2016-11-19 07:18] VITALS: TEMP 97.5
[2016-11-19 09:10] VITALS: BP 118/80; PULSE 85
--- NOTE | 2016-11-19 09:55 | PN ---
Psychiatric Progress Note Vital Signs: Vital Signs Period Temp Pulse Resp BP Sys/Dubose Pulse Ox Last 24 Hr 97.5 F 75-90 17-18 116-119/80-87 Date of Session: 11/19/16 Chief Complaint:: Discharge visit HPI: Patient addressed Opioid ,Cocaine dependence comorbid with Substance induced mood disorder. ROS: Significant for HTN. Current Medications: Active Medications Generic Name Dose Route Start Last Admin Trade Name Freq PRN Reason Stop Dose Admin Acetaminophen 650 mg 10/29/16 15:24 11/14/16 09:57 Tylenol - PO 650 mg Q4H PRN Administration PAIN Al Hydroxide/Mg Hydroxide 30 ml 10/29/16 15:24 Mylanta Oral Suspension - PO Q6H PRN DYSPEPSIA Amlodipine Besylate 5 mg 11/02/16 22:00 11/18/16 21:19 Norvasc - PO 5 mg BID NELIA Administration Bupropion HCl 150 mg 10/30/16 10:00 11/18/16 10:13 Wellbutrin Xl - PO 150 mg DAILY NELIA Administration Diphenhydramine HCl 50 mg 10/29/16 15:24 11/18/16 21:20 Benadryl - PO 50 mg HSMR1 PRN Administration INSOMNIA Eucalyptus/Menthol/Phenol/Sorbitol 1 each 10/29/16 15:24 Cepastat Lozenge - MM Q4H PRN SORE THROAT Gabapentin 300 mg 10/29/16 22:00 11/19/16 06:02 Neurontin - PO 300 mg TID [facility] Administration Guaifenesin 10 ml 10/29/16 15:24 Robitussin Dm - PO Q6H PRN COUGH Hydrochlorothiazide 25 mg 11/01/16 10:00 11/18/16 10:13 Hctz - PO 25 mg DAILY NELIA Administration Hydrocortisone 1 applic 11/04/16 14:00 11/18/16 21:20 Hytone 1% Cream - TP Not Given QID [facility] Hydroxyzine Pamoate 50 mg 10/29/16 15:24 Vistaril - PO Q4H PRN AGITATION Ibuprofen 400 mg 10/29/16 15:24 Motrin - PO Q6H PRN SEVERE PAIN Loperamide HCl 4 mg 10/29/16 15:24 Imodium - PO Q6H PRN DIARRHEA Magnesium Citrate 300 ml 10/29/16 15:24 Citroma - PO Q48H PRN CONSTIPATION Magnesium Hydroxide 30 ml 10/29/16 15:24 11/06/16 10:14 Milk Of Magnesia - PO 30 ml DAILY PRN Administration CONSTIPATION Magnesium Oxide 400 mg 10/30/16 10:00 11/18/16 10:13 Mag-Ox - PO 400 mg DAILY NELIA Administration Methadone HCl 120 mg/ 140 mg 11/06/16 06:00 11/19/16 06:02 Methadone HCl 20 mg PO 140 mg DAILY@0600 NELIA Administration Mirtazapine 15 mg 10/29/16 22:00 11/18/16 21:20 Remeron - PO 15 mg HS NELIA Administration Nicotine 21 mg 10/30/16 10:00 11/18/16 10:12 Nicoderm Patch - TD 21 mg DAILY NELIA Administration Nicotine Polacrilex 4 mg 10/29/16 15:24 Nicorette Gum - BUC Q2H PRN NICOTINE REPLACEMENT RX Paroxetine HCl 30 mg 10/30/16 10:00 11/18/16 10:13 Paxil - PO 30 mg DAILY NELIA Administration Multivit/Folic Acid/Iron 1 tab 10/30/16 10:00 11/18/16 10:13 Vitamins (Sjr) - PO 1 tab DAILY NELAI Administration Pseudoephedrine/Triprolidine 1 combo 10/29/16 15:24 Actifed - PO TID PRN NASAL CONGESTION Thiamine HCl 100 mg 10/29/16 22:00 11/18/16 21:19 Vitamin B1 - PO 100 mg HS NELIA Administration Current Side Effect: No Lab tests ordered: No Lab tests reviewed: Yes Provider note:: Patient completed this program today.She has met her treatment goals and will continue to address her issues on outpatient basis at [facility] in [facility].Patient will continue current medicatons as per plan:Paxil 30 mg po daily,Neurontin 300 mg po tid and Wellbutrin XL 150 mg po daily .Scripts for 30 days provided. Supportive therapy provided focusing on relapse prevention. Patient is stable for discharge today. Supportive therapy provided focusing on relapse prevention including coping skills,support system utilization to maintain recovery. Patient is stable for discharge today. Total face to face time:: 30 Mental Status Exam - Mental Status Exam Alert and Oriented to: Time, Place, Person Cognitive Function: Grossly Intact Patient Appearance: Well Groomed Mood: Hopeful Affect: Appropriate, Mood Congruent Patient Behavior: Cooperative Speech Pattern: Clear Voice Loudness: Normal Thought Disorder: Not Present Hallucinations: Denies Suicidal Ideation: Denies Homicidal Ideation: Denies Insight/Judgement: Fair Sleep: Fair Appetite: Good Muscle strength/Tone: Normal Gait/Station: Normal Psychiatric Treatment Plan - Problem List (1) Cocaine dependence Qualifiers: Substance use status: uncomplicated Qualified Code(s): F14.20 - Cocaine dependence, uncomplicated (2) Methadone maintenance therapy patient Comment: last dose of 140mg given today; pending verification (3) Migraine Qualifiers: Migraine type: unspecified Status migrainosus presence: without status migrainosus (4) Nicotine dependence Qualifiers: Nicotine product type: cigarettes Substance use status: uncomplicated Qualified Code(s): F17.210 - Nicotine dependence, cigarettes, uncomplicated
[2016-11-19] MEDS: HYDROCORTISONE 1% TOPICAL CREAM 30 GM TUBE TP SCH (10:16)
[2016-11-19] MEDS: MAGNESIUM OXIDE 400 MG TABLET (FP) PO SCH (10:16)
[2016-11-19] MEDS: HYDROCHLOROTHIAZIDE 25 MG TABLET (FP) PO SCH (10:16)
[2016-11-19] MEDS: amLODIPine BESYLATE 5 MG TABLET (FP) PO SCH (10:16)
[2016-11-19] MEDS: PARoxetine HCL 10 MG TABLET (FP) PO SCH (10:17)
[2016-11-19] MEDS: PRENATAL VITAMINS W/ FOLIC ACID TABLET (FP) PO SCH (10:17)
[2016-11-19] MEDS: NICOTINE 21 MG/24 HOURS TOPICAL PATCH TD SCH (10:17)
== END 2016-11-19 10:40 | disposition home or self-care (01) | DRG 772 ==
LOC: YASAS 09:41 → Y3E 14:57
PROVIDERS: ADMIT Psychiatry & Neurology Psychiatry; ATTEND Psychiatry & Neurology Psychiatry
PROC: HZ42ZZZ Group Counseling for Substance Abuse Treatment, Cognitive-Behavioral (ICD-10-PCS; principal; 2016-10-29)
DX: F14.20 Cocaine dependence, uncomplicated (principal); F11.20 Opioid dependence, uncomplicated; F17.210 Nicotine dependence, cigarettes, uncomplicated; F43.10 Post-traumatic stress disorder, unspecified; I10 Essential (primary) hypertension; G43.909 Migraine, unspecified, not intractable, without status migrainosus; B18.2 Chronic viral hepatitis C; M54.9 Dorsalgia, unspecified; G89.29 Other chronic pain; Z86.69 Personal history of other diseases of the nervous system and sense organs
CPT/HCPCS: 36415; 80053; 81003; 81015; 85027; 86593; 87389; 93005; 93010

== ENCOUNTER 2022-05-07 17:36 | Inpatient (IN) | payer OTHER ==
[2022-05-07 20:23] VITALS: BMI 33.0
[2022-05-07] MEDS ORDERED: P-EPHED 60MG/TRIPROLIDI 2.5MG TABLET PO PRN (23:46)
[2022-05-07] MEDS ORDERED: ACETAMINOPHEN 325 MG TABLET (FP) PO PRN ×2 (23:46)
[2022-05-07] MEDS ORDERED: BISMUTH SUBSALICYLATE 524 MG/30 ML PO PRN (23:46)
[2022-05-07] MEDS ORDERED: guaiFENesin 200 MG/10 ML 10 ML UNIT-DOSE CUPS PO PRN (23:46)
[2022-05-07] MEDS ORDERED: MAGNESIUM HYDROX 2400MG/30ML ORAL SUSPENSION 30 ML CUP PO PRN (23:46)
[2022-05-07] MEDS ORDERED: LOPERAMIDE HCL 2 MG CAPSULE PO PRN (23:46)
[2022-05-07] MEDS ORDERED: IBUPROFEN 600 MG TABLET (FP) PO PRN (23:46)
[2022-05-07] MEDS ORDERED: POLYETHYLENE GLYCOL (HEALTHYLAX) 3350 17 GM PACKET PO PRN (23:46)
[2022-05-07] MEDS ORDERED: BENZOCAINE/MENTHOL (CHLORASEPTIC ) LOZENGE MM PRN (23:46)
[2022-05-07] MEDS ORDERED: ONDANSETRON *ODT* 4 MG TABLET SL PRN (23:46)
[2022-05-07] MEDS ORDERED: MAG HYDROX/AL HYDROX/SIMETH 30 ML UNIT-DOSE CUP PO PRN (23:46)
[2022-05-07] MEDS ORDERED: IBUPROFEN 400 MG TABLET (FP) PO PRN (23:46)
[2022-05-07] MEDS ORDERED: DICYCLOMINE HCL 10 MG CAPSULE PO PRN (23:46)
[2022-05-07] MEDS ORDERED: NICOTINE POLACRILEX 2 MG GUM BUC PRN (23:46)
[2022-05-07] MEDS ORDERED: NICOTINE 10 MG CARTRIDGE (INHALER) IH PRN (23:46)
[2022-05-08] MEDS: hydrOXYzine PAMOATE 25 MG CAPSULE (FP) PO PRN ×3 (02:23→22:36)
[2022-05-08] MEDS: METHOCARBAMOL 500 MG TABLET PO PRN ×2 (02:23→22:36)
[2022-05-08] MEDS: diazePAM 5 MG TABLET PO SCH ×5 (02:45→22:38)
[2022-05-08] MEDS: diazePAM 5 MG TABLET PO PRN (02:51)
[2022-05-08] MEDS ORDERED: cloNIDine HCL 0.1 MG TABLET PO ONE (07:19)
[2022-05-08] MEDS ORDERED: ARIPiprazole 5 MG TABLET PO SCH (10:00)
[2022-05-08] MEDS ORDERED: methaDONE HCL 10 MG TABLET PO SCH (10:00)
[2022-05-08] MEDS: levETIRAcetam 250 MG TABLET PO SCH ×2 (10:31→22:36)
[2022-05-08] MEDS: cloNIDine HCL 0.1 MG TABLET PO PRN ×2 (10:31→22:41)
[2022-05-08] MEDS: PRENATAL VITAMINS W/ FOLIC ACID TABLET (FP) PO SCH (10:31)
[2022-05-08 13:03] LABS: BLOOD UREA NITROGEN 37.8 mg/dL (7-18); CALCIUM 8.5 mg/dL (8.5-10.1)
[2022-05-08 13:04] LABS: ALBUMIN 3.1 g/dl (3.4-5.0)
[2022-05-08 13:07] LABS: CREATININE 2.4 mg/dL (0.55-1.3)
[2022-05-08 13:08] LABS: BILIRUBIN,TOTAL 0.4 mg/dL (0.2-1); TOT PROT 6.6 g/dl (6.4-8.2)
[2022-05-08 13:13] LABS: HEMATOCRIT 34.2 % (32.4-45.2); HEMOGLOBIN 11.1 GM/dL (10.7-15.3); MCH 29.5 pg (25.7-33.7); MCHC 32.5 g/dl (32.0-36.0); MEAN CELL VOLUME 90.9 fl (80-96); MEAN PLT VOLUME 8.4 fl (7.5-11.1); PLATELET COUNT 187 10^3/uL (134-434); RBC 3.77 M/mm3 (3.60-5.2); WHITE BLOOD COUNT 4.4 K/mm3 (4.0-10.0)
[2022-05-08] MEDS: LISINOPRIL 10 MG TABLET PO SCH (14:55)
[2022-05-08] MEDS: FAMOTIDINE 20 MG TABLET PO SCH (14:55)
[2022-05-08] MEDS ORDERED: MELATONIN 5 MG TABLETS PO SCH (22:00)
[2022-05-08] MEDS ORDERED: SUVOREXANT 5 MG TABLET PO PRN ×2 (22:00→22:40)
[2022-05-08] MEDS ORDERED: SUVOREXANT 10 MG TABLET PO PRN (22:00)
[2022-05-08] MEDS: THIAMINE HCL 100 MG TABLET (FP) PO SCH (22:36)
[2022-05-09] MEDS: cloNIDine HCL 0.1 MG TABLET PO PRN (05:44)
[2022-05-09] MEDS: diazePAM 5 MG TABLET PO SCH ×3 (05:48→21:31)
[2022-05-09] MEDS ORDERED: cloNIDine HCL 0.1 MG TABLET PO ONE ×2 (06:42→09:30)
[2022-05-09] MEDS: FAMOTIDINE 20 MG TABLET PO SCH (09:56)
[2022-05-09] MEDS: levETIRAcetam 250 MG TABLET PO SCH ×2 (09:56→21:31)
[2022-05-09] MEDS: LISINOPRIL 10 MG TABLET PO SCH (09:56)
[2022-05-09] MEDS: ARIPiprazole 10 MG TABLET PO SCH (09:56)
[2022-05-09] MEDS: PRENATAL VITAMINS W/ FOLIC ACID TABLET (FP) PO SCH (10:22)
[2022-05-09] MEDS: cloNIDine HCL 0.1 MG TABLET PO SCH ×2 (13:50→21:30)
[2022-05-09] MEDS: THIAMINE HCL 100 MG TABLET (FP) PO SCH (21:31)
[2022-05-09] MEDS: hydrOXYzine PAMOATE 25 MG CAPSULE (FP) PO PRN (21:31)
[2022-05-09] MEDS: METHOCARBAMOL 500 MG TABLET PO PRN (21:31)
[2022-05-10] MEDS: diazePAM 5 MG TABLET PO SCH ×2 (05:43→17:24)
[2022-05-10] MEDS: cloNIDine HCL 0.1 MG TABLET PO SCH ×2 (05:44→22:07)
[2022-05-10] MEDS: hydrOXYzine PAMOATE 25 MG CAPSULE (FP) PO PRN ×2 (09:47→17:24)
[2022-05-10] MEDS: ARIPiprazole 10 MG TABLET PO SCH (09:47)
[2022-05-10] MEDS: diazePAM 5 MG TABLET PO PRN ×2 (09:47→22:09)
[2022-05-10] MEDS: FAMOTIDINE 20 MG TABLET PO SCH (09:47)
[2022-05-10] MEDS: amLODIPine BESYLATE 5 MG TABLET (FP) PO SCH (09:48)
[2022-05-10] MEDS: PRENATAL VITAMINS W/ FOLIC ACID TABLET (FP) PO SCH (09:50)
[2022-05-10] MEDS: levETIRAcetam 250 MG TABLET PO SCH ×2 (09:52→22:08)
[2022-05-10] MEDS ORDERED: cloNIDine HCL 0.1 MG TABLET PO ONE (12:13)
[2022-05-10] MEDS: METHOCARBAMOL 500 MG TABLET PO PRN (17:27)
[2022-05-10] MEDS: THIAMINE HCL 100 MG TABLET (FP) PO SCH (22:08)
[2022-05-11] MEDS: cloNIDine HCL 0.1 MG TABLET PO SCH (05:46)
[2022-05-11] MEDS ORDERED: diazePAM 5 MG TABLET PO ONE (06:00)
[2022-05-11 07:48] VITALS: PULSE 52
[2022-05-11 09:06] VITALS: BP 153/84; RESP 16; TEMP 96.9
[2022-05-11] MEDS: FAMOTIDINE 20 MG TABLET PO SCH (10:10)
[2022-05-11] MEDS: amLODIPine BESYLATE 5 MG TABLET (FP) PO SCH (10:11)
[2022-05-11] MEDS: PRENATAL VITAMINS W/ FOLIC ACID TABLET (FP) PO SCH (10:11)
[2022-05-11] MEDS: levETIRAcetam 250 MG TABLET PO SCH (10:11)
[2022-05-11] MEDS: ARIPiprazole 10 MG TABLET PO SCH (10:11)
== END 2022-05-11 12:53 | disposition other institution (70) | DRG 773 ==
LOC: YASAS 17:36 → Y3N 05-08 02:16
PROVIDERS: ADMIT Allergy & Immunology; ATTEND Allergy & Immunology
PROC: HZ2ZZZZ Detoxification Services for Substance Abuse Treatment (ICD-10-PCS; principal; 2022-05-08)
DX: F10.230 Alcohol dependence with withdrawal, uncomplicated (principal); F11.20 Opioid dependence, uncomplicated; F14.20 Cocaine dependence, uncomplicated; F12.10 Cannabis abuse, uncomplicated; F17.210 Nicotine dependence, cigarettes, uncomplicated; F31.9 Bipolar disorder, unspecified; F41.9 Anxiety disorder, unspecified; F43.10 Post-traumatic stress disorder, unspecified; Z21 Asymptomatic human immunodeficiency virus [HIV] infection status; I12.9 Hypertensive chronic kidney disease with stage 1 through stage 4 chronic kidney disease, or unspecified chronic kidney disease; N18.9 Chronic kidney disease, unspecified; M54.9 Dorsalgia, unspecified; Z91.410 Personal history of adult physical and sexual abuse
CPT/HCPCS: 36415; 80053; 81025; 85027; 86780; C9803-CS; U0003; U0005

== ENCOUNTER 2022-05-11 13:33 | Inpatient (IN) | payer OTHER ==
[2022-05-11 14:44] VITALS: RESP 18
[2022-05-11] MEDS ORDERED: LOPERAMIDE HCL 2 MG CAPSULE PO PRN (14:58)
[2022-05-11] MEDS ORDERED: NICOTINE 10 MG CARTRIDGE (INHALER) IH PRN (14:58)
[2022-05-11] MEDS ORDERED: MAG HYDROX/AL HYDROX/SIMETH 30 ML UNIT-DOSE CUP PO PRN (14:58)
[2022-05-11] MEDS ORDERED: IBUPROFEN 400 MG TABLET (FP) PO PRN (14:58)
[2022-05-11] MEDS ORDERED: MAGNESIUM HYDROX 2400MG/30ML ORAL SUSPENSION 30 ML CUP PO PRN (14:58)
[2022-05-11] MEDS ORDERED: P-EPHED 60MG/TRIPROLIDI 2.5MG TABLET PO PRN (14:58)
[2022-05-11] MEDS ORDERED: hydrOXYzine PAMOATE 25 MG CAPSULE (FP) PO PRN (14:58)
[2022-05-11] MEDS ORDERED: guaiFENesin 200 MG/10 ML 10 ML UNIT-DOSE CUPS PO PRN (14:58)
[2022-05-11] MEDS ORDERED: ACETAMINOPHEN 325 MG TABLET (FP) PO PRN (14:58)
[2022-05-11] MEDS ORDERED: POLYETHYLENE GLYCOL (HEALTHYLAX) 3350 17 GM PACKET PO PRN (14:58)
[2022-05-11] MEDS ORDERED: BENZOCAINE/MENTHOL (CHLORASEPTIC ) LOZENGE MM PRN (14:58)
[2022-05-11] MEDS: CLONIDINE 0.1MG PO SCH (21:20)
[2022-05-11] MEDS: THIAMINE HCL 100 MG TABLET (FP) PO SCH (21:20)
[2022-05-11] MEDS: FAMOTIDINE 20 MG TABLET PO SCH (21:20)
[2022-05-11] MEDS: levETIRAcetam 250 MG TABLET PO SCH (21:21)
[2022-05-11] MEDS: HYDROCORTISONE 1% TOPICAL CREAM 30 GM TUBE TP PRN (21:23)
[2022-05-11] MEDS ORDERED: MELATONIN 5 MG TABLETS PO SCH (22:00)
[2022-05-12] MEDS ORDERED: methaDONE HCL 40 MG DISPERSABLE TABLET PO SCH (06:00)
[2022-05-12] MEDS: CLONIDINE 0.1MG PO SCH ×3 (06:29→21:30)
[2022-05-12] MEDS: FAMOTIDINE 20 MG TABLET PO SCH ×2 (10:28→21:31)
[2022-05-12] MEDS: LISINOPRIL 10 MG TABLET PO SCH (10:28)
[2022-05-12] MEDS: BISACODYL 5 MG TABLET.DR (FP) PO SCH (10:28)
[2022-05-12] MEDS: levETIRAcetam 250 MG TABLET PO SCH ×2 (10:28→21:31)
[2022-05-12] MEDS: PRENATAL VITAMINS W/ FOLIC ACID TABLET (FP) PO SCH (10:28)
[2022-05-12] MEDS: NICOTINE 7 MG/24 HOURS TOPICAL PATCH TD SCH (10:29)
[2022-05-12] MEDS ORDERED: FLU VACC QS2022-23(6MOS UP)/PF 60 MCG/0.5 ML SYRINGE IM ONE (12:00)
[2022-05-12] MEDS ORDERED: PNEUMOC 20-VAL CONJ-DIP CRM/PF 0.5 ML SYRINGE IM ONE (12:00)
[2022-05-12] MEDS: ARIPiprazole 10 MG TABLET PO SCH (14:32)
[2022-05-12] MEDS: THIAMINE HCL 100 MG TABLET (FP) PO SCH (21:31)
[2022-05-12] MEDS: hydrOXYzine PAMOATE 25 MG CAPSULE (FP) PO PRN (21:32)
[2022-05-13] MEDS: CLONIDINE 0.1MG PO SCH ×3 (06:07→21:10)
[2022-05-13] MEDS: PRENATAL VITAMINS W/ FOLIC ACID TABLET (FP) PO SCH (10:53)
[2022-05-13] MEDS: ARIPiprazole 10 MG TABLET PO SCH (10:54)
[2022-05-13] MEDS: FAMOTIDINE 20 MG TABLET PO SCH (10:54)
[2022-05-13] MEDS: BISACODYL 5 MG TABLET.DR (FP) PO SCH (10:54)
[2022-05-13] MEDS: LISINOPRIL 10 MG TABLET PO SCH (10:54)
[2022-05-13] MEDS: NICOTINE 7 MG/24 HOURS TOPICAL PATCH TD SCH (10:55)
[2022-05-13] MEDS: THIAMINE HCL 100 MG TABLET (FP) PO SCH (21:10)
[2022-05-13] MEDS: hydrOXYzine PAMOATE 25 MG CAPSULE (FP) PO PRN (21:11)
[2022-05-13] MEDS: SUVOREXANT 10 MG TABLET PO PRN (21:13)
[2022-05-14] MEDS: CLONIDINE 0.1MG PO SCH ×3 (06:22→21:22)
[2022-05-14] MEDS: ARIPiprazole 10 MG TABLET PO SCH (10:33)
[2022-05-14] MEDS: LISINOPRIL 10 MG TABLET PO SCH (10:33)
[2022-05-14] MEDS: FAMOTIDINE 20 MG TABLET PO SCH (10:33)
[2022-05-14] MEDS: PRENATAL VITAMINS W/ FOLIC ACID TABLET (FP) PO SCH (10:33)
[2022-05-14] MEDS: NICOTINE 7 MG/24 HOURS TOPICAL PATCH TD SCH (10:33)
[2022-05-14] MEDS: BISACODYL 5 MG TABLET.DR (FP) PO SCH (10:33)
[2022-05-14] MEDS: hydrOXYzine PAMOATE 25 MG CAPSULE (FP) PO PRN (18:28)
[2022-05-14] MEDS: THIAMINE HCL 100 MG TABLET (FP) PO SCH (21:22)
[2022-05-14] MEDS: SUVOREXANT 10 MG TABLET PO PRN (21:22)
[2022-05-15] MEDS: CLONIDINE 0.1MG PO SCH ×3 (06:47→22:15)
[2022-05-15] MEDS: NICOTINE 7 MG/24 HOURS TOPICAL PATCH TD SCH (10:43)
[2022-05-15] MEDS: PRENATAL VITAMINS W/ FOLIC ACID TABLET (FP) PO SCH (10:43)
[2022-05-15] MEDS: FAMOTIDINE 20 MG TABLET PO SCH (10:44)
[2022-05-15] MEDS: BISACODYL 5 MG TABLET.DR (FP) PO SCH (10:44)
[2022-05-15] MEDS: ARIPiprazole 10 MG TABLET PO SCH (10:44)
[2022-05-15] MEDS: LISINOPRIL 10 MG TABLET PO SCH (10:44)
[2022-05-15] MEDS: HYDROCORTISONE 1% TOPICAL CREAM 30 GM TUBE TP PRN (10:46)
[2022-05-15] MEDS ORDERED: SUVOREXANT 10 MG TABLET PO PRN (22:00)
[2022-05-15] MEDS: THIAMINE HCL 100 MG TABLET (FP) PO SCH (22:15)
[2022-05-16] MEDS: CLONIDINE 0.1MG PO SCH ×3 (06:06→22:58)
[2022-05-16] MEDS: BISACODYL 5 MG TABLET.DR (FP) PO SCH (10:36)
[2022-05-16] MEDS: NICOTINE 7 MG/24 HOURS TOPICAL PATCH TD SCH (10:36)
[2022-05-16] MEDS: LISINOPRIL 10 MG TABLET PO SCH (10:36)
[2022-05-16] MEDS: ARIPiprazole 10 MG TABLET PO SCH (10:36)
[2022-05-16] MEDS: PRENATAL VITAMINS W/ FOLIC ACID TABLET (FP) PO SCH (10:36)
[2022-05-16] MEDS: FAMOTIDINE 20 MG TABLET PO SCH (10:37)
[2022-05-16] MEDS: HYDROCORTISONE 1% TOPICAL CREAM 30 GM TUBE TP PRN (10:39)
[2022-05-16] MEDS: THIAMINE HCL 100 MG TABLET (FP) PO SCH (22:59)
[2022-05-17] MEDS: CLONIDINE 0.1MG PO SCH ×3 (06:22→21:22)
[2022-05-17] MEDS: hydrOXYzine PAMOATE 25 MG CAPSULE (FP) PO PRN (06:25)
[2022-05-17] MEDS: LISINOPRIL 10 MG TABLET PO SCH (10:55)
[2022-05-17] MEDS: ARIPiprazole 10 MG TABLET PO SCH (10:55)
[2022-05-17] MEDS: BISACODYL 5 MG TABLET.DR (FP) PO SCH (10:55)
[2022-05-17] MEDS: PRENATAL VITAMINS W/ FOLIC ACID TABLET (FP) PO SCH (10:55)
[2022-05-17] MEDS: FAMOTIDINE 20 MG TABLET PO SCH (10:55)
[2022-05-17] MEDS: NICOTINE 7 MG/24 HOURS TOPICAL PATCH TD SCH (10:56)
[2022-05-17] MEDS: HYDROCORTISONE 1% TOPICAL CREAM 30 GM TUBE TP PRN (10:56)
[2022-05-17] MEDS: THIAMINE HCL 100 MG TABLET (FP) PO SCH (21:22)
[2022-05-18] MEDS: CLONIDINE 0.1MG PO SCH (06:05)
[2022-05-18 08:02] VITALS: PULSE 70
[2022-05-18 08:16] VITALS: TEMP 97.9
[2022-05-18] MEDS: LISINOPRIL 10 MG TABLET PO SCH (09:40)
[2022-05-18] MEDS: BISACODYL 5 MG TABLET.DR (FP) PO SCH (09:40)
[2022-05-18] MEDS: PRENATAL VITAMINS W/ FOLIC ACID TABLET (FP) PO SCH (09:40)
[2022-05-18] MEDS: NICOTINE 7 MG/24 HOURS TOPICAL PATCH TD SCH (09:40)
[2022-05-18] MEDS: ARIPiprazole 10 MG TABLET PO SCH (09:40)
[2022-05-18] MEDS: FAMOTIDINE 20 MG TABLET PO SCH (09:40)
[2022-05-18 09:44] VITALS: BP 138/95
== END 2022-05-18 10:20 | disposition home or self-care (01) | DRG 772 ==
LOC: YASAS 13:33 → Y5N 13:34
PROVIDERS: ADMIT Allergy & Immunology; ATTEND Surgery
PROC: HZ42ZZZ Group Counseling for Substance Abuse Treatment, Cognitive-Behavioral (ICD-10-PCS; principal; 2022-05-11)
DX: F10.20 Alcohol dependence, uncomplicated (principal); F11.20 Opioid dependence, uncomplicated; F14.20 Cocaine dependence, uncomplicated; F17.210 Nicotine dependence, cigarettes, uncomplicated; F19.282 Other psychoactive substance dependence with psychoactive substance-induced sleep disorder; F19.280 Other psychoactive substance dependence with psychoactive substance-induced anxiety disorder; F19.24 Other psychoactive substance dependence with psychoactive substance-induced mood disorder; F31.9 Bipolar disorder, unspecified; F41.9 Anxiety disorder, unspecified; F43.10 Post-traumatic stress disorder, unspecified; K59.00 Constipation, unspecified
CPT/HCPCS: G0008; Q2036